=== PATIENT | male | born 1985 | race Caucasian/White ===

== ENCOUNTER 2017-10-27 13:54 | Emergency (ER) | payer OTHER ==
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
[2017-10-27] MEDS ORDERED: Sodium Chloride 0.9% 2.5 ML Syringe FLUSH PRN (14:06)
[2017-10-27] MEDS ORDERED: Sodium Chloride 0.9% 10 ML Syringe FLUSH PRN (14:06)
[2017-10-27] MEDS ORDERED: Sodium Chloride 0.9% 1,000 ML IV ONE (14:06)
[2017-10-27] MEDS ORDERED: Ondansetron 4 MG/2 ML SDV IVPUSH ONE (14:06)
[2017-10-27] MEDS ORDERED: Morphine 2 MG/ML Syringe IVPUSH ONE (14:37)
[2017-10-27 15:06] LABS: CHLORIDE,CL 102 mmol/L (98-107); SODIUM,NA 138 mmol/L (136-148)
--- NOTE | 2017-10-27 15:15 | CT ---
EXAMINATION: Non contrast CT head. Coronal and sagittal reformats. HISTORY: Pain FINDINGS: No evidence of intra or extra axial hemorrhage, mass, midline shift, hydrocephalus or edema. No hyp oattenuation changes in the major vascular territories to suggest acute infarct. No abnormal intracranial calcifications are detected. No evidence of substantial vascular calcificat ions. Trace mucosal thickening within the maxillary sinuses. Mastoid air cells and middle ears are clear. O rbits and globes are symmetric. Pituitary fossa appears unremarkable. Calvarium is intact. No evidence of skull fracture. IMPRESSION: No acute intracranial findings.
[2017-10-27] MEDS ORDERED: fentaNYL 100 MCG/2 ML SDV IVPUSH ONE (15:46)
== END 2017-10-27 16:20 | disposition home or self-care (01) ==
LOC: MW.ED 13:54
DX: F07.81 Postconcussional syndrome (principal); V89.2XXA Person injured in unspecified motor-vehicle accident, traffic, initial encounter; Z88.6 Allergy status to analgesic agent
CPT/HCPCS: 36415; 70450; 80053; 85025; 96361; 96374; 96375; 99284; J2270; J2405; J3010; J7040

== ENCOUNTER 2020-12-14 16:21 | Emergency (ER) | payer BC, OTHER ==
[2020-12-14] MEDS ORDERED: Sodium Chloride 0.9% 2.5 ML Syringe FLUSH PRN (16:56)
[2020-12-14] MEDS ORDERED: Sodium Chloride 0.9% 10 ML Syringe FLUSH PRN (16:56)
--- NOTE | 2020-12-14 17:10 | EDM.PDOC ---
ED HPI GENERAL MEDICAL PROBLEM - General Chief Complaint: ENT Problem Stated Complaint: REFERED FROM WALK IN [facility] Time Seen by Provider: 12/14/20 16:23 - History of Present Illness INITIAL COMMENTS - FREE TEXT/NARRATIVE: History of present illness: [] The patient had pain in the right side of his throat as well as a scratchy throat feeling and pain in the right periauricular soft tissues especially behind the ear. It started 2 weeks ago and lasted for about a week. Its been better for about a week and then restarted in the last 24 hours. He has this pain intermittently around the mastoid behind the right ear and has had some redness and swelling there. He was seen in clinic today and at that time they felt like he was tender enough to consider mastoiditis. He is not diabetic. He has no systemic signs of illness. His appetites been a little diminished recently. His bowels and bladder are working properly. The patient does not feel lightheaded febrile and does not have chills. Review of systems: As per history of present illness and below otherwise all systems reviewed and negative. Past medical history: As per history of present illness and as reviewed below otherwise noncontributory. Surgical history: As per history of present illness and as reviewed below otherwise noncontributory. Social history: No reported history of drug or alcohol abuse. Family history: As per history of present illness and as reviewed below otherwise noncontributory. Physical exam: Constitutional - well developed, well-nourished and in no acute distress HEENT -there is no tenderness over the mastoid or submandibular or subauricular soft tissues. The right TM is normal and the canal is normal. The pinna is normal. Patient's voice is normal and he has no trismus. Neck is supple. Normocephalic, no evidence of trauma - external nose and mouth normal - no mass in neck and no JVD - mucosae moist EYES - full EOM, PERRL, no icterus - no evidence of inflammation, injection, or drainage Respiratory - no respiratory distress, equal bilateral expansion, lungs clear to auscultation and no abnormal lung sounds Cardiovascular - Regular Rhythm with S1 and S2 appreciated and no murmur, gallop or rub. GI - abdomen soft without distension or organomegaly - normal bowel sounds - no guard or rebound Musculoskeletal no gross deformity of long bones or joints - no tenderness, swelling or edema Neurologic - Alert and oriented times four - CN II-XII grossly intact - motor sensory and coordination symmetrically normal Psychiatric - appropriate mood and affect with normal thought content Hematologic - No petechiae or purpura - mucosa appropriate color and sclera not pale - normal nail bed color and refill Integument - no rash or evidence of trauma - normal turgor Diagnostics: [] Therapeutics: [] Impression: [] Plan: [] Definitive disposition and diagnosis as appropriate pending reevaluation and review of above. Treatments [employer]: Reports: Acetaminophen behind R ear Pain Score (Numeric/FACES): 3 - Related Data Allergies Allergy/AdvReac Type Severity Reaction Status Date / Time NSAIDS (Non-Steroidal Allergy Facial Verified 12/14/20 17:00 Anti-Inflamma Swelling Home Meds: Home Meds Amoxicillin/Clavulanate K [Augmentin 875-125 MG] 1 tab PO BID 10 Days #20 tab 12/14/20 [Rx] Past Medical History HEENT History: Reports: None Cardiovascular History: Reports: None Respiratory History: Reports: None Gastrointestinal History: Reports: None Genitourinary History: Reports: None Musculoskeletal History: Reports: None Neurological History: Reports: None Psychiatric History: Reports: None Endocrine/Metabolic History: Reports: None Hematologic History: Reports: None Immunologic History: Reports: None Oncologic (Cancer) History: Reports: None Dermatologic History: Reports: None - Past Surgical History Head Surgeries/Procedures: Reports: None HEENT Surgical History: Reports: None Cardiovascular Surgical History: Reports: None Respiratory Surgical History: Reports: None GI Surgical History: Reports: None Male Surgical History: Reports: None Endocrine Surgical History: Reports: None Neurological Surgical History: Reports: None Musculoskeletal Surgical History: Reports: None Oncologic Surgical History: Reports: None Dermatological Surgical History: Reports: Other (See Below) (body lipoma exc. x2) Social & Family History - Family History Family Medical History: No Pertinent Family History ED ROS GENERAL - Review of Systems Review Of Systems: Comprehensive ROS is negative, except as noted in HPI. ED EXAM, GENERAL - Physical Exam Exam: See Below Free Text/Narrative:: My physical exam is in the HPI Course - Vital Signs Text/Narrative:: 629 this patient is obviously not toxic. He is not diabetic. He is not a smoke r. He has very few tiny air cells in the mastoid that were opacified but otherwise unremarkable middle ear was unremarkable. Clinically he does not have significant mastoiditis. Plan to treat as a periauricular cellulitis. DC on amoxicillin clavulanic acid. Last Recorded V/S: Last Vital Signs Temp 35.6 C L 12/14/20 17:01 Pulse 76 12/14/20 17:01 Resp 18 12/14/20 17:01 BP 155/75 H 12/14/20 17:01 Pulse Ox 98 12/14/20 17:01 - Orders/Labs/Meds Orders: Active Orders 24 hr Category Date Time Status ESR [SEDIMENTATION RATE AUTO] [HEME] Stat Lab 12/14/20 17:17 Received Sodium Chloride 0.9% [Saline Flush] Med 12/14/20 16:56 Active 10 ml FLUSH ASDIRECTED PRN Sodium Chloride 0.9% [Saline Flush] Med 12/14/20 16:56 Active 2.5 ml FLUSH ASDIRECTED PRN Saline Lock Insert [OM.PC] Stat Oth 12/14/20 16:56 Ordered Medication Orders Sodium Chloride (Sodium Chloride 0.9% 10 Ml Syringe) 10 ml FLUSH ASDIRECTED PRN PRN Reason: Keep Vein Open Sodium Chloride (Sodium Chloride 0.9% 2.5 Ml Syringe) 2.5 ml FLUSH ASDIRECTED PRN PRN Reason: Keep Vein Open Labs: Laboratory Tests 12/14/20 Range/Units 17:17 WBC 9.70 (4.0-11.0) K/uL RBC 4.98 (4.50-5.90) M/uL Hgb 16.2 (13.0-17.0) g/dL Hct 45.3 (38.0-50.0) % MCV 91.0 (80.0-98.0) fL MCH 32.5 H (27.0-32.0) pg MCHC 35.8 (31.0-37.0) g/dL RDW Std Deviation 39.9 (28.0-62.0) fl RDW Coeff of Phillip 12 (11.0-15.0) % Plt Count 269 (150-400) K/uL MPV 10.40 (7.40-12.00) fL Neut % (Auto) 52.5 (48.0-80.0) % Lymph % (Auto) 38.6 (16.0-40.0) % [place] % (Auto) 6.1 (0.0-15.0) % Eos % (Auto) 2.6 (0.0-7.0) % Baso % (Auto) 0.2 (0.0-1.5) % Neut # (Auto) 5.1 (1.4-5.7) K/uL Lymph # (Auto) 3.7 H (0.6-2.4) K/uL [place] # (Auto) 0.6 (0.0-0.8) K/uL Eos # (Auto) 0.3 (0.0-0.7) K/uL Baso # (Auto) 0.0 (0.0-0.1) K/uL Nucleated RBC % 0.0 /100WBC Nucleated RBCs # 0 K/uL Meds: Medications Generic Name Dose Route Start Last Admin Trade Name Freq PRN Reason Stop Dose Admin Sodium Chloride 10 ml 12/14/20 16:56 Sodium Chloride 0.9% 10 Ml Syringe FLUSH ASDIRECTED PRN Keep Vein Open Sodium Chloride 2.5 ml 12/14/20 16:56 Sodium Chloride 0.9% 2.5 Ml Syringe FLUSH ASDIRECTED PRN Keep Vein Open Departure - Departure Time of Disposition: 18:30 Disposition: Home, Self-Care 01 Condition: Good Clinical Impression: Preauricular cellulitis - Discharge Information Prescriptions: Amoxicillin/Clavulanate K [Augmentin 875-125 MG] 1 tab PO BID 10 Days #20 tab Referrals: PCP,None [Primary Care Provider] - Forms: ED Department Discharge Additional Instructions: Warm compresses to the area if the skin around your ear is red again. [facility] - Primary Care [address] [place] [id number] [address] [id number] The following information is given to patients seen in the emergency department who are being discharged to home. This information is to outline your options for follow-up care. We provide all patients seen in our emergency department with a follow-up referral. The need for follow-up, as well as the timing and circumstances, are variable depending upon the specifics of your emergency department visit. If you don't have a primary care physician on staff, we will provide you with a referral. We always advise you to contact your personal physician following an emergency department visit to inform them of the circumstance of the visit and for follow-up with them and/or the need for any referrals to a consulting specialist. The emergency department will also refer you to a specialist when appropriate. This referral assures that you have the opportunity for follow-up care with a specialist. All of these measure are taken in an effort to provide you with optimal care, which includes your follow-up. Under all circumstances we always encourage you to contact your private physician who remains a resource for coordinating your care. When calling for follow-up care, please make the office aware that this follow-up is from your recent emergency room visit. If for any reason you are refused follow-up, please contact the [facility] Emergency Department at and asked to speak to the emergency department charge nurse. Sepsis Event Note (ED) - Evaluation Sepsis Screening Result: No Definite Risk - Focused Exam Vital Signs: Vital Signs Temp Pulse Resp BP Pulse Ox 12/14/20 17:01 35.6 C L 76 18 155/75 H 98 - My Orders Last 24 Hours: My Active Orders 12/14/20 16:56 Sodium Chloride 0.9% [Saline Flush] 10 ml FLUSH ASDIRECTED PRN Sodium Chloride 0.9% [Saline Flush] 2.5 ml FLUSH ASDIRECTED PRN Saline Lock Insert [OM.PC] Stat 12/14/20 17:17 ESR [SEDIMENTATION RATE AUTO] [HEME] Stat - Assessment/Plan Last 24 Hours: My Active Orders 12/14/20 16:56 Sodium Chloride 0.9% [Saline Flush] 10 ml FLUSH ASDIRECTED PRN Sodium Chloride 0.9% [Saline Flush] 2.5 ml FLUSH ASDIRECTED PRN Saline Lock Insert [OM.PC] Stat 12/14/20 17:17 ESR [SEDIMENTATION RATE AUTO] [HEME] Stat
--- NOTE | 2020-12-14 18:26 | CT ---
Indication : Right mastoiditis. Technique : Performed without IV contrast. Coronal reconstructions are performed with nonstandard orientation. Comparison : None available. Findings : The middle ear clefts are well aerated, including the oval window and round window/sinus tympani areas. The ossicular chains and tympanic membranes have a normal CT appearance. The mastoids are well aerated with the exception of a few tiny opacified peripheral mastoid air cells on both sides. The inner ear structures and IACs are unremarkable. The external canals are negative. Moderate membrane thickening in the maxillary sinuses. Mild membrane thickening in the ethmoid labyrinth. No abnormalities identified in the adjacent temporomandibular joints. The visualized portions of the brain, orbits and upper soft tissue neck are grossly negative. Impression : 1. There are a few tiny opacified air cells in the periphery of both mastoids. 2. The temporal bones are otherwise negative. 3. Mild paranasal sinus membrane thickening. Please note that all CT scans at this facility use dose modulation, iterative reconstruction, and/or weight-based dosing when appropriate to reduce radiation dose to as low as reasonably achievable. Dictated by Branden Esquivel MD @ 12/14/2020 6:24:[address] Branden Esquivel @ Dec 14 2020 6:24PM
== END 2020-12-14 18:50 | disposition home or self-care (01) ==
LOC: MW.ED 16:21
DX: H60.11 Cellulitis of right external ear (principal); Z88.6 Allergy status to analgesic agent
CPT/HCPCS: 36415; 70480; 70480-26; 85025; 85652; 99283

== ENCOUNTER 2022-01-08 13:19 | Emergency (ER) | payer OTHER ==
[2022-01-08] MEDS ORDERED: Lidocaine 2% Viscous Solution 15 ML UD PO ONE (15:07)
[2022-01-08] MEDS ORDERED: Benzocaine 20% Topical Spray UD MUCMEM ONE (15:07)
== END 2022-01-08 15:29 | disposition home or self-care (01) ==
LOC: MW.ED 13:19
DX: K04.7 Periapical abscess without sinus (principal); Z88.6 Allergy status to analgesic agent
CPT/HCPCS: 99282; A9270

== ENCOUNTER 2022-09-19 11:20 | Emergency (ER) | payer BC, OTHER ==
[2022-09-19] MEDS ORDERED: Lactated Ringers 1,000 ML IV SCH (11:30)
[2022-09-19 11:51] LABS: APPEARANCE,URINE CLEAR; BILIRUBIN,URINE NEGATIVE (NEGATIVE); COLOR,URINE YELLOW; GLUCOSE,URINE 500 mg/dL (NEGATIVE); KETONES,URINE >=80 mg/dL (NEGATIVE); LEUKOCYTE ESTERASE,URINE NEGATIVE (NEGATIVE); NITRITE,URINE NEGATIVE (NEGATIVE); OCCULT BLOOD,URINE NEGATIVE (NEGATIVE); PH,URINE 5.5 (5.0-8.0); PROTEIN,URINE NEGATIVE (NEGATIVE); UROBILINOGEN,URINE 0.2 EU/dL (<2.0)
[2022-09-19 12:19] LABS: BASOPHILS PERCENT AUTO 0.1 % (0.0-1.5); EOSINOPHILS ABSOLUTE AUTO 0.1 K/uL (0.0-0.7); EOSINOPHILS PERCENT AUTO 0.8 % (0.0-7.0); HEMATOCRIT 44.3 % (38.0-50.0); HEMOGLOBIN 15.6 g/dL (13.0-17.0); LYMPHOCYTES ABSOLUTE AUTO 0.8 K/uL (0.6-2.4); LYMPHOCYTES PERCENT AUTO 8.6 % (16.0-40.0); MEAN CORPUSCULAR HEMOGLOBIN 32.1 pg (27.0-32.0); MEAN CORPUSCULAR HGB CONC 35.2 g/dL (31.0-37.0); MEAN CORPUSCULAR VOLUME 91.2 fL (80.0-98.0); MONOCYTES ABSOLUTE AUTO 0.6 K/uL (0.0-0.8); MONOCYTES PERCENT AUTO 5.9 % (0.0-15.0); NEUTROPHILS ABSOLUTE AUTO 8.1 K/uL (1.4-5.7); NEUTROPHILS PERCENT AUTO 84.6 % (48.0-80.0); NRBC ABSOLUTE 0 K/uL; PLATELET COUNT,PLT 215 K/uL (150-400); RED BLOOD CELL COUNT 4.86 M/uL (4.50-5.90); WHITE BLOOD CELL COUNT,WBC 9.52 K/uL (4.0-11.0)
[2022-09-19] MEDS ORDERED: Ondansetron 4 MG/2 ML SDV IVPUSH ONE (12:42)
[2022-09-19 12:43] LABS: A/G RATIO 1.2 (0.9-1.6); BILIRUBIN TOTAL 1.2 mg/dL (0.2-1.0); CREATININE 1.1 mg/dL (0.8-1.3); EST CRCL DRUG DOSING (CG) 104.92 mL/min; POTASSIUM,K 4.5 mmol/L (3.5-5.1); PROTEIN TOTAL,TP 7.4 g/dL (6.4-8.2)
[2022-09-19 13:14] LABS: BASE EXCESS VENOUS -5.9 (-2.0-3.0); PH,VENOUS 7.32 (7.31-7.41)
[2022-09-19] MEDS ORDERED: Insulin Regular, Human 100 Units/ML 10 ML Vial SUBCUT ONE (13:40)
[2022-09-19] MEDS ORDERED: 50% Dextrose in Water 50 ML Syringe IVPUSH PRN (13:40)
[2022-09-19] MEDS ORDERED: Glucagon,Human Recombinant 1 MG Vial IM PRN (13:40)
[2022-09-19 15:35] LABS: HEMOGLOBIN A1C >14.0 %
[2022-09-19 15:43] LABS: CALCIUM 8.3 mg/dL (8.5-10.1); CARBON DIOXIDE,CO2 23.3 mmol/L (21.0-32.0); CREATININE 1.1 mg/dL (0.8-1.3); EST CRCL DRUG DOSING (CG) 104.92 mL/min; POTASSIUM,K 4.7 mmol/L (3.5-5.1)
== END 2022-09-19 16:03 | disposition home or self-care (01) ==
LOC: MW.ED 11:20
DX: E11.65 Type 2 diabetes mellitus with hyperglycemia (principal); Z88.8 Allergy status to other drugs, medicaments and biological substances; Z79.84 Long term (current) use of oral hypoglycemic drugs; Z20.822 Contact with and (suspected) exposure to COVID-19
CPT/HCPCS: 36415; 80048; 80053; 81003; 82009; 82803; 82947; 83036; 83690; 83735; 85025; 87635; 93005; 96361; 96374; 99284; J2405; J7120; J1815-GY; U0002

== ENCOUNTER 2023-02-09 15:43 | Emergency (ER) | payer BC ==
[2023-02-09] MEDS ORDERED: Lidocaine 1% 5 ML VIAL INJECT STA (17:39)
[2023-02-09] MEDS ORDERED: Diphtheria,Pertussis(Acell),Tetanus Vaccine 0.5 ML Syringe IM ONE (17:39)
== END 2023-02-09 19:41 | disposition home or self-care (01) ==
LOC: MW.ED 15:43
DX: S61.210A Laceration without foreign body of right index finger without damage to nail, initial encounter (principal); S61.212A Laceration without foreign body of right middle finger without damage to nail, initial encounter; E11.9 Type 2 diabetes mellitus without complications; Z88.6 Allergy status to analgesic agent; Z79.84 Long term (current) use of oral hypoglycemic drugs; Z79.899 Other long term (current) drug therapy; W25.XXXA Contact with sharp glass, initial encounter
CPT/HCPCS: 12002; 73130-26-RT; 73130-RT; 90471; 90715; 99283; 99283-25; J3490